=== PATIENT | female | born 1970 | race Caucasian/White ===

== ENCOUNTER 2017-10-31 18:38 | Emergency (ER) | payer OTHER ==
[~2017-10-31] VITALS: Ht 162.6 cm; Wt 79.8 kg
--- OUTSIDE RECORDS SUMMARY | ~2017-10-31 | XMS ---
Demographics + + + | Address | [address] | | | [place] [address] | + + + | Preferred Language | Unknown | + + + | Marital Status | Unknown | + + + | Temple Affiliation | Unknown | + + + | Race | Unknown | + + + | Ethnic Group | Unknown | + + + Author + + + | Author | [facility] | + + + | Organization | [facility] | + + + | Address | [address] | | | [place] [address] | + + + | Phone | | + + + Care Team Providers + + + + | Care Biomedical Equipment Tech Name | Role | Phone | + + + + Unavailable | Unavailable | + + + + PROBLEMS +---------+ + + +--------+ + + | Type | Condition | ICD9-CM | [id number] | Onset | Condition | SNOMED | | | | Code | Code | Dates | Status | Code | +---------+ + + +--------+ + + | Problem | Insomnia | 780.52 | | | Active | 682052607 | +---------+ + + +--------+ + + | Problem | Acute | N10 | | | Active | 92696194 | | | pyelonephr | | | | | | | | itis | | | | | | +---------+ + + +--------+ + + | Problem | Kidney | N28.89 | | | Active | 174332561 | | | mass | | | | | | +---------+ + + +--------+ + + | 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 | | | diabetes | | | | | | | | mellitus | | | | | | | | with other | | | | | | | | diabetic | | | | | | | | kidney | | | | | | | | complicati | | | | | | | | on | | | | | | +---------+ + + +--------+ + + | Problem | Migraines | 346.90 | | | Active | 03066971 | +---------+ + + +--------+ + + | Problem | UTI | | N39.0 | | Active | 22558566 | | | (urinary | | | | | | | | tract | | | | | | | | infection) | | | | | | +---------+ + + +--------+ + + | Problem | Nausea & | | R11.2 | | Active | 44547895 | | | vomiting | | | | | | +---------+ + + +--------+ + + | Problem | Back pain | | M54.9 | | Active | 400028580 | +---------+ + + +--------+ + + | Problem | Pain in | R10.9 | | | Active | 74800233 | | | the | | | | | | | | abdomen | | | | | | +---------+ + + +--------+ + + | Problem | Diabetes | | E11.9 | | Active | 855276147 | +---------+ + + +--------+ + + | Problem | Rheumatoid | 714.0 | | | Active | 93550080 | | | arthritis | | | | | | +---------+ + + +--------+ + + | Problem | Restless | 333.94 | | | Active | 45953927 | | | leg | | | | | | | | syndrome | | | | | | +---------+ + + +--------+ + + | Problem | Plantar | 728.71 | | | Active | 064512522 | | | fasciitis | | | | | | +---------+ + + +--------+ + + | Problem | Degenerati | 722.6 | | | Active | 09560852 | | | ve disc | | | | | | | | disease | | | | | | +---------+ + + +--------+ + + | Problem | Lumbosacra | 756.19 | | | Active | | | | l joint of | | | | | | | | vertebra | | | | | | | | transition | | | | | | | | al | | | | | | +---------+ + + +--------+ + + | Problem | Pseudarthr | 733.82 | | | Active | 242380348 | | | osis, | | | | | | | | pseudoarth | | | | | | | | rosis | | | | | | +---------+ + + +--------+ + + | Problem | Sciatica | 724.3 | | | Active | 40382906 | +---------+ + + +--------+ + + | Problem | Substance | 305.90 | | | Active | 55736884 | | | Abuse | | | | | | +---------+ + + +--------+ + + | 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
--- OUTSIDE RECORDS SUMMARY | ~2017-10-31 | XMS ---
Demographics + + + | Address | [address] | | | [place] [address] | + + + | Preferred Language | Unknown | + + + | Marital Status | Unknown | + + + | Uatsdin Affiliation | Unknown | + + + | Race | Unknown | + + + | Ethnic Group | Unknown | + + + Author + + + | Author | [facility] | + + + | Organization | [facility] | + + + | Address | [address] | | | [place] [address] | + + + | Phone | | + + + Care Team Providers + + + + | Care Behavioral Health Rn Name | Role | Phone | + + + + Unavailable | Unavailable | + + + + PROBLEMS +---------+ + + +--------+ + + | Type | Condition | ICD9-CM | [id number] | Onset | Condition | SNOMED | | | | Code | Code | Dates | Status | Code | +---------+ + + +--------+ + + | Problem | Environmen | V15.09 | | | Active | 958707960 | | | avery | | | | | | | | allergies | | | | | | +---------+ + + +--------+ + + | Problem | Kidney | N28.89 | | | Active | 470340514 | | | mass | | | | | | +---------+ + + +--------+ + + | Problem | Insomnia | 780.52 | | | Active | 124586634 | +---------+ + + +--------+ + + | Problem | UTI | | N39.0 | | Active | 24070899 | | | (urinary | | | | | | | | tract | | | | | | | | infection) | | | | | | +---------+ + + +--------+ + + | Problem | Pain in | R10.9 | | | Active | 60858981 | | | the | | | | | | | | abdomen | | | | | | +---------+ + + +--------+ + + | Problem | Back pain | | M54.9 | | Active | 179109717 | +---------+ + + +--------+ + + | Problem | Acute | N10 | | | Active | 87679175 | | | pyelonephr | | | | | | | | itis | | | | | | +---------+ + + +--------+ + + | Problem | Diabetes | | E11.9 | | Active | 046619649 | +---------+ + + +--------+ + + | Problem | Nausea & | | R11.2 | | Active | 51007710 | | | vomiting | | | | | | +---------+ + + +--------+ + + | Problem | Degenerati | 722.6 | | | Active | 33485005 | | | ve disc | | | | | | | | disease | | | | | | +---------+ + + +--------+ + + | Problem | Rheumatoid | 714.0 | | | Active | 35820917 | | | arthritis | | | | | | +---------+ + + +--------+ + + | Problem | Migraines | 346.90 | | | Active | 52843697 | +---------+ + + +--------+ + + | Problem | Plantar | 728.71 | | | Active | 687788182 | | | fasciitis | | | | | | +---------+ + + +--------+ + + | Problem | Neoplasm | 239.2 | | | Active | 86662083 | | | of | | | [...] | 333.94 | | | Active | 37704456 | | | leg | | | | | | | | syndrome | | | | | | +---------+ + + +--------+ + + | Problem | Pseudarthr | 733.82 | | | Active | 789921420 | | | osis, | | | | | | | | pseudoarth | | | | | | | | rosis | | | | | | +---------+ + + +--------+ + + | Problem | Sciatica | 724.3 | | | Active | 16608792 | +---------+ + + +--------+ + + | Problem | Substance | 305.90 | | | Active | 78344815 | | | Abuse | | | | | | +---------+ + + +--------+ + + ALLERGIES Unknown Allergies SOCIAL HISTORY No smoking Hx information available PLAN OF CARE VITAL SIGNS MEDICATIONS Unknown Medications RESULTS No Results PROCEDURES No Known procedures IMMUNIZATIONS No Known Immunizations"
--- OUTSIDE RECORDS SUMMARY | ~2017-10-31 | XMS ---
Demographics + + + | Address | [address] | | | [place] [address] | + + + | Preferred Language | Unknown | + + + | Marital Status | Unknown | + + + | Restorationism Affiliation | Unknown | + + + | Race | Unknown | + + + | Ethnic Group | Unknown | + + + Author + + + | Author | [facility] | + + + | Organization | [facility] | + + + | Address | [address] | | | [place] [address] | + + + | Phone | | + + + Care Team Providers + + + + | Care Brick And Block Mason Name | Role | Phone | + + + + Unavailable | Unavailable | + + + + PROBLEMS +---------+ + + +--------+ + + | Type | Condition | ICD9-CM | MSN60-[id number] | Onset | Condition | SNOMED | | | | Code | Code | Dates | Status | Code | +---------+ + + +--------+ + + | Problem | Nausea & | | R11.2 | | Active | 54884039 | | | vomiting | | | | | | +---------+ + + +--------+ + + | Problem | Pain in | R10.9 | | | Active | 80428824 | | | the | | | | | | | | abdomen | | | | | | +---------+ + + +--------+ + + | Problem | Diabetes | | E11.9 | | Active | 765032608 | +---------+ + + +--------+ + + | Problem | PTSD | | F43.10 | | Active | 10579950 | | | (post-trau | | | | | | | | matic | | | | | | | | stress | | | | | | | | disorder) | | | | | | +---------+ + + +--------+ + + | Problem | Restless | 333.94 | | | Active | 16725780 | | | leg | | | | | | | | syndrome | | | | | | +---------+ + + +--------+ + + | Problem | Growth of | D49.2 | | | Active | | | | eyelid | | | | | | +---------+ + + +--------+ + + | Problem | Rheumatoid | 714.0 | | | Active | 18064793 | | | arthritis | | | | | | +---------+ + + +--------+ + + | Problem | Degenerati | 722.6 | | | Active | 01441800 | | | ve disc | | | | | | | | disease | | | | | | +---------+ + + +--------+ + + | Problem | Type 2 | | 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 | | Active | 301776579 | | | diabetes | | | [...] | | N39.0 | | Active | 56916993 | | | (urinary | | | | | | | | tract | | | | | | | | infection) | | | | | | +---------+ + + +--------+ + + | Problem | Tachycardi | R00.0 | | | Active | 2323011 | | | a | | | | | | +---------+ + + +--------+ + + | Problem | DUB | N93.8 | | | Active | 62138941 | | | (dysfuncti | | | | | | | | onal | | | | | | | | uterine | | | | | | | | bleeding) | | | | | | +---------+ [...] | 733.82 | | | Active | 087071891 | | | osis, | | | | | | | | pseudoarth | | | | | | | | rosis | | | | | | +---------+ + + +--------+ + + | Problem | Sciatica | 724.3 | | | Active | 58289711 | +---------+ + + +--------+ + + | Problem | Neoplasm | 239.2 | | | Active | 80117002 | | | of | | | [...] | 780.52 | | | Active | 066181713 | +---------+ + + +--------+ + + | Problem | Kidney | N28.89 | | | Active | 127038885 | | | mass | | | | | | +---------+ + + +--------+ + + | Problem | Migraines | 346.90 | | | Active | 81265278 | +---------+ + + +--------+ + + | Problem | Substance | 305.90 | | | Active | 61578895 | | | Abuse | | | | | | +---------+ + + +--------+ + + | Problem | Acute | N10 | | | Active | 97420744 | | | pyelonephr | | | | | | | | itis | | | | | | +---------+ + + +--------+ + + | Problem | Plantar | 728.71 | | | Active | 889385296 | | | fasciitis | | | | | | +---------+ + + +--------+ + + | Problem | Environmen | V15.09 | | | Active | 142577636 | | | avery | | | | | | | | allergies | | | | | | +---------+ + + +--------+ + + | Problem | Back pain | | M54.9 | | Active | 299778761 | +---------+ + + +--------+ + + ALLERGIES No Information SOCIAL HISTORY Never Assessed PLAN OF CARE VITAL SIGNS MEDICATIONS Unknown Medications RESULTS No Results PROCEDURES No Known procedures IMMUNIZATIONS No Known Immunizations MEDICAL (GENERAL) HISTORY + + + + | Type | Description | Date | + + + + | Medical History | Diabetes | | + + + + | Medical History | Chronic Pain | | + + + + | Medical History | Rheumatoid Arthritis, hips | | | | , lower back, elbow, | | | | fingers | | + + + + | Medical History | Migraines | | + + + + | Medical History | bulging discs L4-L5 r/t DJD | | + + + + | Medical History | C5 fracture 60358 | | + + + + | Medical History | Right rib pain-started | | | | years ago | | + + + + | Medical History | Joint pain | | + + + + | Medical History | renal cell carcinoma | | + + + + | Surgical History | c- section | 2013 | + + + + | Surgical History | galllbladder removal | 2009 | + + + + | Surgical History | tonsils | 1976 | + + + + | Surgical History | laparoscopies uterus for | | | | cyst removal | | + + + + | Surgical History | kidney cancer | 12/2015 | + + + +"
--- OUTSIDE RECORDS SUMMARY | ~2017-10-31 | XMS ---
Demographics + + + | Address | [address] | | | [place] [address] | + + + | Preferred Language [...] | + + + | Address | [address] | | | [place] [address] | + + + | Phone | | + + + Care Team Providers + + + + | Care Jewel Cupping Machine Operator Name | Role | Phone | + + + + Unavailable | Unavailable | + + + + PROBLEMS +---------+ + + +--------+ + + | Type | Condition | ICD9-CM | ROO60-[id number] | Onset | Condition | SNOMED | | | | Code | Code | Dates | Status | Code | +---------+ + + +--------+ + + | Problem | Environmen | V15.09 | | | Active | 814871164 | | | avery | | | | | | | | allergies | | | | | | +---------+ + + +--------+ + + | Problem | Kidney | N28.89 | | | Active | 420221239 | | | mass | | | | | | +---------+ + + +--------+ + + | Problem | Insomnia | 780.52 | | | Active | 254416924 | +---------+ + + +--------+ + + | Problem | UTI | | N39.0 | | Active | 83900797 | | | (urinary | | | | | | | | tract | | | | | | | | infection) | | | | | | +---------+ + + +--------+ + + | Problem | Pain in | R10.9 | | | Active | 62340614 | | | the | | | | | | | | abdomen | | | | | | +---------+ + + +--------+ + + | Problem | Back pain | | M54.9 | | Active | 200607396 | +---------+ + + +--------+ + + | Problem | Acute | N10 | | | Active | 31252821 | | | pyelonephr | | | | | | | | itis | | | | | | +---------+ + + +--------+ + + | Problem | Diabetes | | E11.9 | | Active | 054130376 | +---------+ + + +--------+ + + | Problem | Nausea & | | R11.2 | | Active | 13914520 | | | vomiting | | | | | | +---------+ + + +--------+ + + | Problem | Degenerati | 722.6 | | | Active | 03729716 | | | ve disc | | | | | | | | disease | | | | | | +---------+ + + +--------+ + + | Problem | Rheumatoid | 714.0 | | | Active | 37287149 | | | arthritis | | | | | | +---------+ + + +--------+ + + | Problem | Migraines | 346.90 | | | Active | 71066415 | +---------+ + + +--------+ + + | Problem | Plantar | 728.71 | | | Active | 682606311 | | | fasciitis | | | | | | +---------+ + + +--------+ + + | Problem | Neoplasm | 239.2 | | | Active | 64314661 | | | of | | | [...] | 333.94 | | | Active | 18256534 | | | leg | | | | | | | | syndrome | | | | | | +---------+ + + +--------+ + + | Problem | Pseudarthr | 733.82 | | | Active | 169500888 | | | osis, | | | | | | | | pseudoarth | | | | | | | | rosis | | | | | | +---------+ + + +--------+ + + | Problem | Sciatica | 724.3 | | | Active | 76293773 | +---------+ + + +--------+ + + | Problem | Substance | 305.90 | | | Active | 22186998 | | | Abuse | | | | | | +---------+ + + +--------+ + + ALLERGIES + + + + +---------+ | Substance | Reaction | Event Type | Date | Status | + + + + +---------+ | N.K.D.A. | Unknown | Non Drug | Jan, | Unknown | | | | Allergy | | | + + + + +---------+ SOCIAL HISTORY No smoking Hx information available PLAN OF CARE + +---------+ | Activity | Details | + +---------+ +---+ | | +---+ + + + | Follow Up | prn Reason:null | + + + | Pending Test | X ray : Spine Thoracic 2 view | + + + | Pending Test | X ray : Spine Cervical AP & L (2 views) | + + + VITAL SIGNS + + + + | Height | 64.5 in | 2017-02-01 | + + + + | Weight | 206.9 lbs | 2017-02-01 | + + + + | BMI | 34.96 kg/m2 | 2017-02-01 | + + + + | Temperature | 98.0 degrees Fahrenheit | 2017-02-01 | + + + + | Heart Rate | 102 /min | 2017-02-01 | + + + + | Blood pressure systolic | 141 mm Hg | 2017-02-01 | + + + + | Blood pressure diastolic | 92 mm Hg | 2017-02-01 | + + + + MEDICATIONS + + + + + + + +--------+ | Medicati | Instruct | Dosage | Frequenc | Start | End Date | Duration | Status | | on | ions | | y | Date | | | | + + + + + + + +--------+ | Zofran | Orally | 1 tablet | 8h | 19 Apr, | | 30 | Active | | ODT 4 mg | every 8 | on the | | 2015 | | day(s) | | | | hrs | tongue | | | | | | | | | and | | | | | | | | | allow to | | | | | | | | | | | | | | | | | | dissolve | | | | | | + + + + + + + +--------+ | Flonase | Nasally | 2 sprays | 24h | | | 30 | Active | | 50MCG/AC | Once a | | | | | | | | T | day | | | | | | | + + + + + + + +--------+ | Free | | as | | 02 Nov, | | 99 | Active | | Style | | directed | | 2014 | | | | | Lite | | | | | | | | | Glucose | | | | | | | | | Meter NA | | | | | | | | + + + + + + + +--------+ | Zyrtec | Orally | 1 tablet | 24h | | 18 Mar, | 90 days | Active | | Allergy | Once a | | | | 2018 | | | | 10 mg | day | | | | | | | + + + + + + + +--------+ | Samira | | as | | 02 Hilario, | | | Active | | Contour | | directed | | 2014 | | | | | Monitor | | | | | | | | | w/Device | | | | | | | | + + + + + + + +--------+ | Free | | as | 6h | 27 Mar, | | 30 | Active | | Style | | directed | | 2016 | | | | | Lancets | | | | | | | | | NA | | | | | | | | + + + + + + + +--------+ | Free | in vitro | as | | 27 Oct, | | 30 | Active | | Style | 4 times | directed | | 2016 | | | | | Test | a day | | | | | | | | Strips | | | | | | | | | NA | | | | | | | | + + + + + + + +--------+ | Samira | In Vitro | as | | 02 Feb, | | 30 | Active | | Contour | 4 | directed | | 2014 | | | | | Test NA | | | | | | | | + + + + + + + +--------+ | Insulin | subcutan | as | | 08 Jaun, | | 30 | Active | | Syringe | eously | directed | | 2014 | | day(s) | | | 30G X | as | | | | | | | | 5/16 | directed | | | | | | | + + + + + + + +--------+ | Lantus | | INJECT | | | | 30 | Active | | 100U/ML | | 22 UNITS | | | | | | | | | SUB-Q | | | | | | | | | AT BED | | | | | | | | | TIME | | | | | | + + + + + + + +--------+ | Butalbit | | TAKE ONE | | | | 30 | Active | | al-APAP- | | CAPSULE | | | | | | | Caffeine | | BY | | | | | | | | | MOUTH | | | | | | | 50-300-4 | | EVERY 4 | | | | | | | 0MG | | HOURS | | | | | | | | | NEEDED | | | | | | + + + + + + + +--------+ | glucomet | SQ use 1 | as | | Feb, | | 1 year | Active | | er test | per | directed | | 2013 | | | | | strips 1 | glucomet | | | | | | | | | er two | | | | | | | | | times | | | | | | | | | daily | | | | | | | + + + + + + + +--------+ | Cycloben | po q8h | one q8h | | 12 Jaun, | 17 Jaun, | 5 days | Active | | zaprine | | | | 2017 | 2017 | | | | 10 mg | | | | | | | | + + + + + + + +--------+ | BuPROPio | Orally | as | 12h | 14 Oct, | | 60 | Active | | n HCl | bid | directed | | 2016 | | | | | 150 MG | | | | | | | | + + + + + + + +--------+ RESULTS No Results PROCEDURES + + + + + | Procedure | Date Ordered | Related Diagnosis | Body Site | + + + + + | Est Level III | February 01, 2017 | | | | Intermediate | | | | + + + + + | INJ KETOROLAC | February 01, 2017 | | | | TROMETHAMINE 15 MG | | | | + + + + + | INJECTION | February 01, 2017 | | | | INTRAMUSCULAR OR | | | | | SUBCUTANEOUS | | | | + + + + + IMMUNIZATIONS + + + + + | Vaccine | Route | Administration Date | Status | + + + + + | Ketorolac 30mg | IM Intramuscular | February 01, 2017 | Administered | + + + + +"
--- OUTSIDE RECORDS SUMMARY | ~2017-10-31 | XMS ---
Demographics + + + | Address | [address] | | | [place] [address] | + + + | Preferred Language | Unknown | + + + | Marital Status | Unknown | + + + | Mandaeism Affiliation | Unknown | + + + | Race | Unknown | + + + | Ethnic Group | Unknown | + + + Author + + + | Author | [facility] | + + + | Organization | [facility] | + + + | Address | [address] | | | [place] [address] | + + + | Phone | | + + + Care Team Providers + + + + | Care Crop Grain Or Livestock Farm Manager Name | Role | Phone | + + + + Unavailable | Unavailable | + + + + PROBLEMS +---------+ + + +--------+ + + | Type | Condition | ICD9-CM | [id number] | Onset | Condition | SNOMED | | | | Code | Code | Dates | Status | Code | +---------+ + + +--------+ + + | Problem | Insomnia | 780.52 | | | Active | 820379487 | +---------+ + + +--------+ + + | Problem | Acute | N10 | | | Active | 40863328 | | | pyelonephr | | | | | | | | itis | | | | | | +---------+ + + +--------+ + + | Problem | Kidney | N28.89 | | | Active | 469947616 | | | mass | | | | | | +---------+ + + +--------+ + + | Problem | Type 2 | | E11.29 | | Active | 054945678 | | | diabetes | | | [...] | 346.90 | | | Active | 26598904 | +---------+ + + +--------+ + + | Problem | UTI | | N39.0 | | Active | 52624345 | | | (urinary | | | | | | | | tract | | | | | | | | infection) | | | | | | +---------+ + + +--------+ + + | Problem | Nausea & | | R11.2 | | Active | 88120639 | | | vomiting | | | | | | +---------+ + + +--------+ + + | Problem | Back pain | | M54.9 | | Active | 933619658 | +---------+ + + +--------+ + + | Problem | Pain in | R10.9 | | | Active | 14689203 | | | the | | | | | | | | abdomen | | | | | | +---------+ + + +--------+ + + | Problem | Diabetes | | E11.9 | | Active | 018118240 | +---------+ + + +--------+ + + | Problem | Rheumatoid | 714.0 | | | Active | 80137463 | | | arthritis | | | | | | +---------+ + + +--------+ + + | Problem | Restless | 333.94 | | | Active | 94655508 | | | leg | | | | | | | | syndrome | | | | | | +---------+ + + +--------+ + + | Problem | Plantar | 728.71 | | | Active | 030317293 | | | fasciitis | | | | | | +---------+ + + +--------+ + + | Problem | Degenerati | 722.6 | | | Active | 16631898 | | | ve disc | | [...] | 733.82 | | | Active | 590000665 | | | osis, | | | | | | | | pseudoarth | | | | | | | | rosis | | | | | | +---------+ + + +--------+ + + | Problem | Sciatica | 724.3 | | | Active | 98275532 | +---------+ + + +--------+ + + | Problem | Substance | 305.90 | | | Active | 68661234 | | | Abuse | | | | | | +---------+ + + +--------+ + + | Problem | Neoplasm | 239.2 | | | Active | 18278075 | | | of | | | [...] | V15.09 | | | Active | 310228116 | | | avery | | | | | | | | allergies | | | | | | +---------+ + + +--------+ + + ALLERGIES Unknown Allergies SOCIAL HISTORY No smoking Hx information available PLAN OF CARE VITAL SIGNS MEDICATIONS Unknown Medications RESULTS No Results PROCEDURES No Known procedures IMMUNIZATIONS No Known Immunizations"
--- OUTSIDE RECORDS SUMMARY | ~2017-10-31 | XMS ---
Demographics + + + | Address | [address] | | | [place] [address] | + + + | Preferred Language | Unknown | + + + | Marital Status | Unknown | + + + | Confucianist Affiliation | Unknown | + + + | Race | Unknown | + + + | Ethnic Group | Unknown | + + + Author + + + | Author | [facility] | + + + | Organization | [facility] | + + + | Address | [address] | | | [place] [address] | + + + | Phone | | + + + Care Team Providers + + + + | Care Solutions Manager Name | Role | Phone | + + + + Unavailable | Unavailable | + + + + PROBLEMS +---------+ + + +--------+ + + | Type | Condition | ICD9-CM | [id number] | Onset | Condition | SNOMED | | | | Code | Code | Dates | Status | Code | +---------+ + + +--------+ + + | Problem | Environmen | V15.09 | | | Active | 314809563 | | | avery | | | | | | | | allergies | | | | | | +---------+ + + +--------+ + + | Problem | Kidney | N28.89 | | | Active | 069416030 | | | mass | | | | | | +---------+ + + +--------+ + + | Problem | Insomnia | 780.52 | | | Active | 254459029 | +---------+ + + +--------+ + + | Problem | UTI | | N39.0 | | Active | 77385248 | | | (urinary | | | | | | | | tract | | | | | | | | infection) | | | | | | +---------+ + + +--------+ + + | Problem | Pain in | R10.9 | | | Active | 96526491 | | | the | | | | | | | | abdomen | | | | | | +---------+ + + +--------+ + + | Problem | Back pain | | M54.9 | | Active | 481786734 | +---------+ + + +--------+ + + | Problem | Acute | N10 | | | Active | 40166194 | | | pyelonephr | | | | | | | | itis | | | | | | +---------+ + + +--------+ + + | Problem | Diabetes | | E11.9 | | Active | 146168159 | +---------+ + + +--------+ + + | Problem | Nausea & | | R11.2 | | Active | 88777527 | | | vomiting | | | | | | +---------+ + + +--------+ + + | Problem | Degenerati | 722.6 | | | Active | 62758194 | | | ve disc | | | | | | | | disease | | | | | | +---------+ + + +--------+ + + | Problem | Rheumatoid | 714.0 | | | Active | 38945794 | | | arthritis | | | | | | +---------+ + + +--------+ + + | Problem | Migraines | 346.90 | | | Active | 23805423 | +---------+ + + +--------+ + + | Problem | Plantar | 728.71 | | | Active | 259059948 | | | fasciitis | | | | | | +---------+ + + +--------+ + + | 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 Metabolic Panel (14) | + + + | Pending Test | Lipid Panel | + + + | Pending Test | Hemoglobin A1C Panel | + + + | Pending Test | cbc | + + + VITAL SIGNS + + + + | Height | 64.5 in | 2017-02-09 | + + + + | Weight | 206.4 lbs | 2017-02-09 | + + + + | BMI | 34.88 kg/m2 | 2017-02-09 | + + + + | Temperature | 97.3 degrees Fahrenheit | 2017-02-09 | + + + + | Heart Rate | 98 /min | 2017-02-09 | + + + + | Blood pressure systolic | 123 mm Hg | 2017-02-09 | + + + + | Blood pressure diastolic | 80 mm Hg | 2017-02-09 | + + + + MEDICATIONS + [...] + + + + + +--------+ | MetFORMI | Orally | 1 tablet | | 20 Jan, | | 30 | Active | | N HCl ER | one time | with | | 2016 | | day(s) | | | 1000 mg | daily | meals | | | | | | | | in am | | | | | | | + + + + + + + +--------+ | glucomet | SQ use 1 | as | | 29 Hilario, | | 1 year | Active | [...] + + + + + +--------+ | Lyrica | Orally | 1 | 12h | 20 Jaun, | | 14 | Active | | 75 mg | Twice a | capsule | | 2016 | | | | | | day | | | | | | | + + + + + + + +--------+ | Samira | | as | | 02 Feb, | | | Active | | Contour | | directed | | 2014 | | | | | Monitor | | | | | | | | | w/Device | | | | | | | | + + + + + + + +--------+ | MetFORMI | Orally | 1 tablet | | 20 Jan, | | 30 | Active | | N HCl ER | one time | with | | 2016 | | day(s) | | | 500 mg | daily | meals | | | | | | | | in pm | | | | | | | [...] + + + + + +--------+ RESULTS + +--------+------+ + | Name | Result | Date | Reference Range | + +--------+------+ + | Glucose, Finger | | | | | Stick (IH) | | | | + +--------+------+ + PROCEDURES + + + + + | Procedure | Date Ordered | Related Diagnosis | Body Site | + + + + + | REAGENT STRIP/BLOOD | February 09, 2017 | | | | GLUCOSE | | | | + + + + + | Est Level IV | February 09, 2017 | | | | Extended | | | | + + + + + IMMUNIZATIONS No Known Immunizations"
--- OUTSIDE RECORDS SUMMARY | ~2017-10-31 | XMS ---
Demographics + + + | Address | [address] | | | [place] [address] | + + + | Preferred Language | Unknown | + + + | Marital Status | Unknown | + + + | Scientology Affiliation | Unknown | + + + | Race | Unknown | + + + | Ethnic Group | Unknown | + + + Author + + + | Author | [facility] | + + + | Organization | [facility] | + + + | Address | [address] | | | [place] [address] | + + + | Phone | | + + + Care Team Providers + + + + | Care Traffic Recorder Name | Role | Phone | + + + + Unavailable | Unavailable | + + + + PROBLEMS +---------+ + + +--------+ + + | Type | Condition | ICD9-CM | [id number] | Onset | Condition | SNOMED | | | | Code | Code | Dates | Status | Code | +---------+ + + +--------+ + + | Problem | Environmen | V15.09 | | | Active | 633181455 | | | avery | | | | | | | | allergies | | | | | | +---------+ + + +--------+ + + | Problem | Kidney | N28.89 | | | Active | 517738295 | | | mass | | | | | | +---------+ + + +--------+ + + | Problem | Insomnia | 780.52 | | | Active | 156783033 | +---------+ + + +--------+ + + | Problem | UTI | | N39.0 | | Active | 28075540 | | | (urinary | | | | | | | | tract | | | | | | | | infection) | | | | | | +---------+ + + +--------+ + + | Problem | Pain in | R10.9 | | | Active | 59211144 | | | the | | | | | | | | abdomen | | | | | | +---------+ + + +--------+ + + | Problem | Back pain | | M54.9 | | Active | 090335974 | +---------+ + + +--------+ + + | Problem | Acute | N10 | | | Active | 92486944 | | | pyelonephr | | | | | | | | itis | | | | | | +---------+ + + +--------+ + + | Problem | Diabetes | | E11.9 | | Active | 866632311 | +---------+ + + +--------+ + + | Problem | Nausea & | | R11.2 | | Active | 12185123 | | | vomiting | | | | | | +---------+ + + +--------+ + + | Problem | Degenerati | 722.6 | | | Active | 78200403 | | | ve disc | | | | | | | | disease | | | | | | +---------+ + + +--------+ + + | Problem | Rheumatoid | 714.0 | | | Active | 17562679 | | | arthritis | | | | | | +---------+ + + +--------+ + + | Problem | Migraines | 346.90 | | | Active | 86544805 | +---------+ + + +--------+ + + | Problem | Plantar | 728.71 | | | Active | 992674431 | | | fasciitis | | | | | | +---------+ + + +--------+ + + | Problem | Neoplasm | 239.2 | | | Active | 97848060 | | | of | | | [...] | 333.94 | | | Active | 34220978 | | | leg | | | | | | | | syndrome | | | | | | +---------+ + + +--------+ + + | Problem | Pseudarthr | 733.82 | | | Active | 481788735 | | | osis, | | | | | | | | pseudoarth | | | | | | | | rosis | | | | | | +---------+ + + +--------+ + + | Problem | Sciatica | 724.3 | | | Active | 99095194 | +---------+ + + +--------+ + + | Problem | Substance | 305.90 | | | Active | 48832245 | | | Abuse | | | | | | +---------+ + + +--------+ + + ALLERGIES Unknown Allergies SOCIAL HISTORY No smoking Hx information available PLAN OF CARE VITAL SIGNS MEDICATIONS + + + + + + + +--------+ | Medicati | Instruct | Dosage | Frequenc | Start | End Date | Duration | Status | | on | ions | | y | Date | | | | + + + + + + + +--------+ | MetFORMI | Orally | 1 tablet | | 20 Jaun, | | 30 | Active | | N HCl ER | one time | with | | 2017 | | day(s) | | | 500 mg | daily | meals | | | | | | | | in pm | | | | | | | + + + + + + + +--------+ | MetFORMI | Orally | 1 tablet | | 20 Jaun, | | 30 | Active | | N HCl ER | one time | with | | 2016 | | day(s) | | | 1000 mg | daily | meals | | | | | | | | in am | | | | | | | + + + + + + + +--------+ RESULTS No Results PROCEDURES No Known procedures IMMUNIZATIONS No Known Immunizations"
--- OUTSIDE RECORDS SUMMARY | ~2017-10-31 | XMS ---
Demographics + + + | Address | [address] | | [place] [address] | + + + | Preferred Language | Unknown | + + + | Marital Status | Unknown | + + + | Tenriism Affiliation | Unknown | + + + | Race | Unknown | + + + | Ethnic Group | Unknown | + + + Author + + + | Author | [facility] | + + + | Organization | [facility] | + + + | Address | [address] | | | [place] [address] | + + + | Phone | | + + + Care Team Providers + + + + | Care Deck Builder Name | Role | Phone | + + + + Unavailable | Unavailable | + + + + PROBLEMS +---------+ + + +--------+ + + | Type | Condition | ICD9-CM | [id number] | Onset | Condition | SNOMED | | | | Code | Code | Dates | Status | Code | +---------+ + + +--------+ + + | Problem | Insomnia | 780.52 | | | Active | 190587024 | +---------+ + + +--------+ + + | Problem | Acute | N10 | | | Active | 69549907 | | | pyelonephr | | | | | | | | itis | | | | | | +---------+ + + +--------+ + + | Problem | Kidney | N28.89 | | | Active | 972991562 | | | mass | | | | | | +---------+ + + +--------+ + + | Problem | Type 2 | | E11.29 | | Active | 688395136 | | | diabetes | | | [...] | 346.90 | | | Active | 04141881 | +---------+ + + +--------+ + + | Problem | UTI | | N39.0 | | Active | 44220263 | | | (urinary | | | | | | | | tract | | | | | | | | infection) | | | | | | +---------+ + + +--------+ + + | Problem | Nausea & | | R11.2 | | Active | 06733426 | | | vomiting | | | | | | +---------+ + + +--------+ + + | Problem | Back pain | | M54.9 | | Active | 109959515 | +---------+ + + +--------+ + + | Problem | Pain in | R10.9 | | | Active | 95723580 | | | the | | | | | | | | abdomen | | | | | | +---------+ + + +--------+ + + | Problem | Diabetes | | E11.9 | | Active | 330609708 | +---------+ + + +--------+ + + | Problem | Rheumatoid | 714.0 | | | Active | 44444593 | | | arthritis | | | | | | +---------+ + + +--------+ + + | Problem | Restless | 333.94 | | | Active | 86163375 | | | leg | | | | | | | | syndrome | | | | | | +---------+ + + +--------+ + + | Problem | Plantar | 728.71 | | | Active | 436782849 | | | fasciitis | | | | | | +---------+ + + +--------+ + + | Problem | Degenerati | 722.6 | | | Active | 20755619 | | | ve disc | | [...] | 733.82 | | | Active | 971126592 | | | osis, | | | | | | | | pseudoarth | | | | | | | | rosis | | | | | | +---------+ + + +--------+ + + | Problem | Sciatica | 724.3 | | | Active | 91259495 | +---------+ + + +--------+ + + | Problem | Substance | 305.90 | | | Active | 93091134 | | | Abuse | | | | | | +---------+ + + +--------+ + + | Problem | Neoplasm | 239.2 | | | Active | 20589123 | | | of | | | [...] | V15.09 | | | Active | 521566949 | | | avery | | | | | | | | allergies | | | | | | +---------+ + + +--------+ + + ALLERGIES + + + + +---------+ | Substance | Reaction | Event Type | Date | Status | + + + + +---------+ | N.[email or web address]. | Unknown | Non Drug | Feb, | Unknown | | | | Allergy | | | + + + + +---------+ SOCIAL HISTORY No smoking Hx information available PLAN OF CARE + +---------+ | Activity | Details | + +---------+ +---+ | | +---+ + + + | Follow Up | 3 Months, prn Reason:null | + + + VITAL SIGNS + + + + | Height | 64.5 in | 2017-03-01 | + + + + | Weight | 202.6 lbs | 2017-03-01 | + + + + | BMI | 34.24 kg/m2 | 2017-03-01 | + + + + | Temperature | 97.6 degrees Fahrenheit | 2017-03-01 | + + + + | Heart Rate | 95 /min | 2017-03-01 | + + + + | Blood pressure systolic | 121 mm Hg | 2017-03-01 | + + + + | Blood pressure diastolic | 81 mm Hg | 2017-03-01 | + + + + MEDICATIONS + + + + + + + +--------+ | Medicati | Instruct | Dosage | Frequenc | Start | End Date | Duration | Status | | on | ions | | y | Date | | | | + + + + + + + +--------+ | Samira | In Vitro | as | | 02 Hilario, | | 30 | Active | | Contour | 4 | directed | | 2014 | | | | | Test NA | | | | | | | | + + + + + + + +--------+ | Lyrica | Orally | 1 | 8h | 10 Feb, | | 30 | Active | | 100 mg | tid | capsule | | 2016 | | day(s) | | + + + + + + + +--------+ | Metformi | Orally | as | 12h | | | 1 month | Active | | n HCl | bid | directed | | | | | | | 1000 mg | | | | | | [...] Insulin | subcutan | as | | Jan, | | 30 | Active | | Syringe | eously | directed | | 2014 | | day(s) | | | 30G X | as | | | | | | | | 01/05 | directed | | | | | [...] | Orally | 1 tablet | | Jan, | | 30 | Active | [...] in vitro | as | | 27 Mar, | | 30 | [...] + + | Est Level IV | March 01, 2017 | | | | Extended | | | | + + + + + IMMUNIZATIONS No Known Immunizations"
[~2017-10-31 18:38] MED LIST: ASPIRIN EC81 MG PO; BACLOFEN10 MG PO; CEPHALEXIN500 MG PO; CIPRO500 MG PO; KEFLEX500 MG PO; LANTUS SOL100 UNIT/1 SUB-Q; LANTUS100 UNITS/ SUB-Q; LEVAQUIN500 MG PO; METFORMIN HCL500 MG PO; NOVOLOG FL100 UNIT/1 SUB-Q; ONDANSETRON ODT8 MG PO; OXYCODONE HCL10 MG PO; PERCOCET 5-3251 EACH PO; PYRIDIUM200 MG PO; ZOFRAN ODT4 MG SL
== END 2017-10-31 19:32 | disposition left against medical advice (07) ==
LOC: ED 18:38
DX: Z53.21 Procedure and treatment not carried out due to patient leaving prior to being seen by health care provider (principal)

== ENCOUNTER 2017-11-12 18:09 | Emergency (ER) | payer OTHER ==
[~2017-11-12] VITALS: Ht 162.6 cm; Wt 79.8 kg
[2017-11-12] MEDS ORDERED: GLUCOPHAGE1000 MG PO (18:23)
[2017-11-12] MEDS ORDERED: TRAMADOL HCL50 MG PO (21:11)
[2017-11-12] MEDS ORDERED: ZITHROMAX250 MG PO (21:11)
--- NOTE | 2017-11-13 05:43 | EKG ---
[facility] [address] [place], [place] [address] Signed Sinus tachycardia Otherwise normal ECG No previous ECGs available Confirmed by MIGUELANGEL DEMARCO MD ([id number]) on 11/13/2017 5:43:41 AM Electronically Signed By: MIGUELANGEL DEMARCO MD 11/13/17 0543 PATIENT NAME: LEIDY ROYAL Electrocardiogram DATE OF : 68 PHYSICIAN: MIGUELANGEL DEMARCO MD REPORT #: [id number] REPORT IS CONFIDENTIAL AND NOT TO BE RELEASED WITHOUT AUTHORIZATION
== END 2017-11-12 21:31 | disposition home or self-care (01) ==
LOC: ED 18:09
DX: J20.9 Acute bronchitis, unspecified (principal); R10.11 Right upper quadrant pain; G89.29 Other chronic pain; E11.9 Type 2 diabetes mellitus without complications; Z87.442 Personal history of urinary calculi; Z87.891 Personal history of nicotine dependence; Z79.84 Long term (current) use of oral hypoglycemic drugs
CPT/HCPCS: 71046; 74176; 80053; 81001; 84484; 84703; 85025; 85379; 93005; 93010; 96374; 96375; 99284; J1885; J2405; J7030